=== PATIENT | male | born 2000 | race Caucasian/White ===

== ENCOUNTER 2023-11-13 08:49 | Emergency (ER) | payer SELFPAY ==
[2023-11-13 10:47] LABS: Manual Diff?? YES; Mean Corpuscular HGB CONC 33.3 g/dL (32.0-36.0); Mean Corpuscular Hemoglobin 29.5 pg (27.0-31.0); Mean Corpuscular Volume 88.6 fl (78.0-98.0); Mean Platelet Volume 9.5 fL (7.4-10.4); Platelet Count 235 10x3/uL (130-400); RBC Distribution Width 11.9 % (11.5-14.5); Red Blood Cell (RBC) Count 5.08 mill/uL (4.70-6.10); White Blood Cell (WBC) Count 4.3 10x3/uL (4.8-10.8)
[2023-11-13 10:48] LABS: Delete Auto Diff?? YES
[2023-11-13 11:12] LABS: Troponin I Less than 0.010 ng/mL (< 0.028)
[2023-11-13 11:14] LABS: ALT (SGPT) 17 U/L (8-55); AST (SGOT) 19 U/L (5-34); Albumin 4.6 g/dL (3.5-5.0); Alkaline Phosphatase 70 U/L (40-110); Anion Gap 16 mmol/L (10-20); BUN (Urea Nitrogen) 15 mg/dL (8.9-20.6); Calc. Creatinine Clearance 0 mL/min (70-130); Calcium 9.9 mg/dL (7.8-10.44); Carbon Dioxide 27 mmol/L (22-29); Chloride 102 mmol/L (98-107); Estimated GFR 113; Globulin 3.6 g/dL (2.4-3.5); Glucose 55 mg/dL (70-105); INR-International Normal Ratio 1.1; Lipase Less than 4 U/L (8-78); Potassium 3.7 mmol/L (3.5-5.1); Protein, Total 8.2 g/dL (6.0-8.3); Prothrombin Time 13.8 sec (12.0-14.7); Sodium 141 mmol/L (136-145)
[2023-11-13 11:15] LABS: PTT 37.5 sec (22.9-36.1)
[2023-11-13 11:20] LABS: Band 2 % (5-11); Lymphocytes 39 % (21-51); Monocytes 11 % (0-10); Neutrophil 48 % (42-75)
[2023-11-13 11:21] LABS: Ovalocytes SLIGHT = 2-5 cells (100X) (0-1/hpf); Platelet Adequacy Comment Appears Adequate
[2023-11-13 11:50] LABS: D-Dimer Test Less than 0.27 mcg/mL (0.27-0.43)
[2023-11-13 12:45] LABS: SARS-CoV-2 NAA Rapid Test Not Detected (NotDetected)
== END 2023-11-13 13:37 | disposition home or self-care (01) ==
LOC: ERS 08:49
DX: R07.81 Pleurodynia (principal); E10.9 Type 1 diabetes mellitus without complications
CPT/HCPCS: 36415; 71045; 80053; 83690; 84484; 85025; 85379; 85610; 85730; 93005; 96374